=== PATIENT | male | born 1965 | race Asian ===

== ENCOUNTER 2024-06-30 09:54 | Emergency (ER) | payer OTHER ==
[~2024-06-30] VITALS: Ht 167.6 cm; Wt 75.6 kg
[2024-06-30] MEDS ORDERED: CEFTRIAXONE SODIUM 2 GM in SODIUM CHLORIDE 0.9% 100 ML IV ONE (10:45)
[2024-06-30 11:20] LABS: BASOPHILS 0.8 % (0-2); EOSINOPHILS 5.4 % (0-6); HEMATOCRIT 43.2 % (35.0-50.0); LYMPHOCYTES 20.8 % (24-44); MCH 20.9 (27-36); MCHC 32.4 g/dl (30-36); MCV 64.6 fl (81-99); MONOCYTES 11.9 % (0-12); NEUTROPHILS 61.1 % (39-80); PLATELET COUNT 359 K/uL (140-440); RBC 6.68 M/ul (4.3-5.7)
[2024-06-30 11:23] LABS: ANION GAP 14.3 (7-21); CALCIUM 8.8 mg/dL (8.5-10.1); CREATININE, SERUM 1.2 mg/dL (0.70-1.30); POTASSIUM 4.3 mmol/L (3.5-5.1)
[2024-06-30] MEDS ORDERED: AMOX TR-K CLV1 EAC1 PO (13:10)
[2024-06-30 13:24] VITALS: BP 127/87
== END 2024-06-30 13:21 | disposition home or self-care (01) ==
LOC: ED 09:54
PROVIDERS: Emergency Medicine
DX: L03.213 Periorbital cellulitis (principal)
CPT/HCPCS: 36415; 70481; 80048; 85025; 85060; 99284-25; J0696; Q9967

== ENCOUNTER 2024-07-06 15:41 | Inpatient (IN) | payer OTHER ==
[~2024-07-06] VITALS: Ht 167.6 cm; Wt 75.6 kg
[~2024-07-06 15:41] MED LIST: AMOX TR-K CLV1 EAC1 PO
--- OUTSIDE RECORDS SUMMARY | 2024-07-06 15:47 | XMS ---
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 Jac has no Care Guidelines for this patient. Sarmad VISIT COUNT (12 MO.) 2 [facility] [facility] TOTAL 2 NOTE: Visits indicate total known visits. [place] [place]12 [place] 07/06/2024 15:41 [facility] [place] TYPE: Emergency COMPLAINT: - FACIAL SWELLING 06/30/2024 09:55 [facility] [place] TYPE: Emergency COMPLAINT: - EYE PROBLEM DIAGNOSES: - Periorbital cellulitis INPATIENT VISIT TRACKING (12 MO.) No inpatient visits to display in this time frame [id number]
[2024-07-06 16:39] LABS: BASOPHILS 0.8 % (0-2); EOSINOPHILS 6.9 % (0-6); HEMATOCRIT 37.9 % (35.0-50.0); HEMOGLOBIN 12.3 g/dL (12.0-18.0); LYMPHOCYTES 20.6 % (24-44); MCHC 32.4 g/dl (30-36); MCV 64.7 fl (81-99); MONOCYTES 5.9 % (0-12); NEUTROPHILS 65.8 % (39-80); PLATELET COUNT 332 K/uL (140-440); RBC 5.86 M/ul (4.3-5.7); RDW 16.1 (10.5-15.0)
[2024-07-06 16:53] LABS: ALBUMIN/GLOBULIN RATIO 1.03 (1.1-2.4); ANION GAP 10.3 (7-21); BILIRUBIN, TOTAL 0.4 mg/dL (0.2-1.0); BUN/CREATININE RATIO 22.77 (6.0-28.6); CALCIUM 8.7 mg/dL (8.5-10.1); CREATININE, SERUM 1.01 mg/dL (0.70-1.30); POTASSIUM 4.3 mmol/L (3.5-5.1); PROTEIN, TOTAL 7.9 g/dL (6.4-8.2)
[2024-07-06] MEDS ORDERED: DAPTOmycin 500 MG/10 ML VIAL IV SCH ×2 (18:29→18:36)
[2024-07-06] MEDS ORDERED: AMP/SULBACTAM SOD 3 GM in SODIUM CHLORIDE 0.9% 100 ML IV ONE (18:30)
[2024-07-06 19:37] VITALS: BP 142/81
[2024-07-06 19:45] VITALS: BP 148/88
--- NOTE | 2024-07-06 19:45 | NUR ---
pt ARRIVED TO THE FLOOR VIA STRETCHER. pt ABLE TO WALK TO THE BED FROM THE STRETCHER. ASSESSMENT AND VITAL SIGNS DONE. pt DENIES ANY OTHER NEEDS AT THIS TIME. CALL LIGHT WITHIN REACH. IV ASSESSED, WNL. pt LEFT SIDE OF HIS FACE IS SWOLLEN AND RED WITH BLISTERS. pt STATES HE CAN SEE OUT OF HIS LEFT EYE BUT HIS VISION IS BLURRY.
[2024-07-06] MEDS ORDERED: PIPERACILLIN/TAZOBACTAM 3.375 GM in SODIUM CHLORIDE 0.9% 100 ML IV SCH (21:30)
[2024-07-06] MEDS ORDERED: OXYCODONE HCL 5 MG TAB PO PRN (21:30)
--- NOTE | 2024-07-06 21:40 | NUR ---
THIS RN CALLED THE MD TO ASK FOR ORDERS FOR THE PATIENT. NEW ORDERS GIVEN AND VERIFIED WITH REPEAT BACK METHOD. THIS RN IN TO HAND IV ABX. IV ABX INFUSING PER ORDER. pt DENIES ANY PAIN AT THIS TIME. CALL LIGHT WITHIN REACH. WATER REFRESHED.
[2024-07-07] VITALS (10 sets, daily range): BP systolic 115–138; BP diastolic 71–86
--- NOTE | 2024-07-07 00:24 | NUR ---
IN RM TO CHECK ON pt. pt UP TO THE BR. pt INDEPENDENT IN THE RM. pt DENIES ANY OTHER NEEDS AT THIS TIME. CALL LIGHT WITHIN REACH.
--- NOTE | 2024-07-07 01:52 | NUR ---
VITAL SIGNS AND ASSESSMENT DONE. pt DENIES AND PAIN AT THIS TIME. LEFT SIDE OF FACE IS STILL RED AND HAS BLISTERS. pt DENIES ANY OTHER NEEDS AT THIS TIME. CALL LIGHT WITHIN REACH.
--- NOTE | 2024-07-07 03:38 | NUR ---
pt RESTING IN THE BED WITH EYES CLOSED. RR EVEN AND UNLABORED. CALL LIGHT WITHIN REACH.
[2024-07-07 05:04] LABS: BASOPHILS 0.5 % (0-2); EOSINOPHILS 0.9 % (0-6); HEMATOCRIT 37.2 % (35.0-50.0); HEMOGLOBIN 12.2 g/dL (12.0-18.0); MCH 20.9 (27-36); MCHC 32.7 g/dl (30-36); MCV 63.9 fl (81-99); MONOCYTES 7.1 % (0-12); NEUTROPHILS 72.5 % (39-80); PLATELET COUNT 344 K/uL (140-440); RBC 5.82 M/ul (4.3-5.7); RDW 16.2 (10.5-15.0)
[2024-07-07 05:20] LABS: ALBUMIN 3.7 g/dL (3.4-5.0); ALBUMIN/GLOBULIN RATIO 1.03 (1.1-2.4); ANION GAP 10.6 (7-21); BILIRUBIN, TOTAL 0.5 mg/dL (0.2-1.0); BUN/CREATININE RATIO 17.34 (6.0-28.6); CALCIUM 8.2 mg/dL (8.5-10.1); CREATININE, SERUM 0.98 mg/dL (0.70-1.30); MAGNESIUM 2.4 mg/dL (1.8-2.4); POTASSIUM 3.6 mmol/L (3.5-5.1); PROTEIN, TOTAL 7.3 g/dL (6.4-8.2)
--- NOTE | 2024-07-07 06:16 | NUR ---
pt RESTING IN THE BED. WATER REFRESHED. IV ABX INFUSING PER ORDER. pt DENIES ANY OTHER NEEDS AT THIS TIME. CALL LIGHT WITHIN REACH.
--- NOTE | 2024-07-07 07:11 | NUR ---
REPORT RECEIVED FROM IRIS WALDEN. PATIENT IS RESTING IN BED AWAKE AND ALERT, TWO GUARDS PRESENT IN ROOM. PATIENT HAS NO REQUESTS, CALL LIGHT IN REACH.
[2024-07-07] MEDS ORDERED: ACETAMINOPHEN 325 MG TAB PO PRN (08:00)
[2024-07-07] MEDS ORDERED: ondansetron HCL 4 MG/2 ML VIAL IV PRN (08:00)
[2024-07-07] MEDS ORDERED: IBUPROFEN 400 MG TAB PO PRN (08:15)
[2024-07-07] MEDS ORDERED: diphenhydrAMINE HCL 25 MG CAP PO PRN (08:30)
[2024-07-07] MEDS ORDERED: ENOXAPARIN SODIUM 40 MG/0.4 ML SYR SUB-Q SCH (09:00)
--- NOTE | 2024-07-07 09:22 | NUR ---
MEDICATION ADMINISTERED, SEE MAR. ASSESSMENT COMPLETE. PATIENT RESTING IN BED IN FOUR POINT CUSTODY RESTRAINTS. PULSES AND CAP REFILL CHECKED IN ALL EXTREMETIES, WNL. PATIENT HAS REDDENED AND BLISTERED AREA TO LEFT ORBIT AND LEFT CHEEK WITH SEROUS DRAINAGE NOTED DOWN TO HIS JAW AND CHIN. PATIENT IS PROVIDED WITH A WARM, WET WASH CLOTH TO CLEANSE HIS FACE AND DOES SO INDEPENDENTLY. PATIENT COMPLAINS OF ITCHING AND PAIN TO THIS REDDENED AREA RATED 7/10, PRN PAIN MEDICATION ADMINISTERED, SEE MAR. PATIENT REPORTS HIS VISION IS BLURRY ONLY BECAUSE OF "ALL THE LIQUID BY MY EYE" BUT HIS VISION IS OTHERWISE FINE. PATIENT HAS NO OTHER COMPLAINTS, NO REQUESTS. JULIANE VO PROVIDES FRESH ICE WATER AND REMAINS IN ROOM TO TAKE VITALS.
[2024-07-07] MEDS ORDERED: PHARMACY RENAL DOSE ADJUSTMENT 1 DOSE MISC PO SCH (12:00)
--- NOTE | 2024-07-07 12:05 | NUR ---
PATIENT REPORTING L SIDED FACIAL PAIN RATED 5/10. PRN PAIN MEDICATION PROVIDED ALONG WITH WARM, WET WASHCLOTH FOR PATIENT TO LEAVE RESTING ON HIS FACE. PATIENT HAS NO OTHER REQUESTS, CALL LIGHT IN REACH. TWO GUARDS IN ROOM THROUGHOUT INTERACTION, FOUR POINT RESTRAINTS REMAIN IN PLACE.
--- NOTE | 2024-07-07 14:44 | NUR ---
PATIENT CONTINUES REPORTING LEFT FACIAL PAIN RATED 5/10. PATIENT AGREEABLE TO TRYING AN ICEPACK FOR PAIN. ICE PACK PROVIDED, PATIENT CURRENTLY HOLDING ICE PACK TO LEFT SIDE OF HIS FACE. ENTIRE AREA CLEANSED, INCLUDING AROUND THE EYE, PATTED DRIED. SEROUS DRAINAGE NOTED TO BE DECREASING FROM THIS AM. SMALL CRACKS NOTED TO THE SKIN. REDNESS UNCHANGED FROM THIS AM. PATIENT REPORTS NO CHANGES IN HIS VISION, "ACTUALLY A LITTLE BITTER" COMPARED TO THIS AM. PATIENT HAS NO REQUESTS, CALL LIGHT IN REACH. 2 GUARDS IN ROOM THROUGHOUT, FOUR POINT RESTRAINTS IN PLACE.
--- NOTE | 2024-07-07 17:19 | NUR ---
FRESH ICE WATER SUPPLIED. PATIENT HAS NO OTHER REQUESTS. PATIENT REMAINS IN FOUR POINT RESTRAINTS PER POLICY, GUARD PRESENT IN ROOM. CALL LIGHT IN REACH.
[2024-07-07] MEDS ORDERED: DAPTOmycin 500 MG/10 ML VIAL IV SCH (21:00)
[2024-07-07] MEDS ORDERED: CEFTRIAXONE SODIUM 1 GM in SODIUM CHLORIDE 0.9% 100 ML IV SCH (21:00)
--- NOTE | 2024-07-07 21:40 | NUR ---
Pt alert and oriented. redness and edema with yellow thin discharge over redness L cheek area. warm and tender to touch. Medicated with Motrin and Benadryl per c/o tenderness and itching. area cleansed gentlyw ith soapy warm water and warm compress to area prior to. toleratd well. eye closed due to edema. denies viaual changes when trying to open eyen. On room air. cooperative with vitals and assessment. lungs clear bilar. abd soft, CORNELIUS. tolerating liquids well. using 4point shackles as per [employer] protocol, 2 officers in room. Repositioned self. SL LAC patent. abx infusing w/o problems
[2024-07-08] VITALS (9 sets, daily range): BP systolic 117–140; BP diastolic 76–92
--- NOTE | 2024-07-08 00:29 | NUR ---
RESTING, EYES CLOSED, REDNESS AND EDEMA TO L CHEEK ABDULLAHI NO CHANGES. THIN SCANT AMOUNT OF YELLOW DRAINAGE PRESENT. 4 POINT RESTRAINT PER [facility] IN PLACE, 2 OFFICERS IN ROOM
--- NOTE | 2024-07-08 03:06 | NUR ---
Awake, c/o 4/10 L cheeck pain and itching, medicated with Benadryl 25mg po and Ibuprofen 400mg po. warm compress to L cheek, upper eyelid less edematous, less edema and redness to L cheek area. Pt stated he has been up to brp x2 .
[2024-07-08 05:08] LABS: BASOPHILS 0.9 % (0-2); EOSINOPHILS 8.1 % (0-6); HEMOGLOBIN 11.8 g/dL (12.0-18.0); LYMPHOCYTES 25.1 % (24-44); MCHC 32.8 g/dl (30-36); MCV 64.2 fl (81-99); MONOCYTES 7.8 % (0-12); NEUTROPHILS 58.1 % (39-80); PLATELET COUNT 331 K/uL (140-440); RBC 5.61 M/ul (4.3-5.7); RDW 16.1 (10.5-15.0)
[2024-07-08 05:20] LABS: ANION GAP 11.8 (7-21); BUN/CREATININE RATIO 21.35 (6.0-28.6); CREATININE, SERUM 1.03 mg/dL (0.70-1.30); MAGNESIUM 2.2 mg/dL (1.8-2.4); POTASSIUM 3.8 mmol/L (3.5-5.1)
--- NOTE | 2024-07-08 05:51 | NUR ---
Awake, watchint tv, no c/o facial pain or itching at this time. On room air. L eye decreased periorbital edema and L cheek edema and redness. continues to have scant amount of seros drainage. declined warm compress at this time. Denies visual problems. Tolerating liquids w/o problems, independent to BRP voiding QS. Wearing 4 point [facility] restraints as per [facility] protocol, 2 oficers in room.
--- NOTE | 2024-07-08 07:33 | NUR ---
HAWK REPORT RECIEVED FROM IRIS FLOREZ. PT LAYING IN BED WITH [address] 2 GAURDS IN ROOM. PT FACIAL CELLULITIS HAS NOT INCREASED IN REDNESS, OR SWELLING AT THIS TIME. PT HAS NO CURRENT CONCERNS AND HAS CALL LIGHT IN REACH AT THIS TIME.
--- NOTE | 2024-07-08 09:35 | NUR ---
PT LAYING IN BED WITH [address] PER [facility] RULES. PT HAS PAIN 2/10 AT THIS TIME AND HAS NO CURRENET CONCERNS AT THIS TIME PT CALL LIGHT IN REACH WITH TWO GAURDS PRESENT IN ROOM AT THIS TIME.
[2024-07-08] MEDS ORDERED: ARTIFICIAL TEARS 15 ML BTL OU PRN (10:30)
--- NOTE | 2024-07-08 10:36 | NUR ---
PT IN BED AT THIS TIME, PT REQUESTED ICE WATER. PT CELLULITIS HAS NO SPREAD AT THIS TIME, SKIN ON LEFT PORTION OF FACE HAS DECREASED IN REDNESS, BUT IS STILL DRY AND FLAKING AT THIS TIME. PT HAS NO CURRENT CONCERNS AT THIS TIME CALL LIGHT IN REACH.
--- NOTE | 2024-07-08 11:16 | NUR ---
MED REC COMPLETE
--- NOTE | 2024-07-08 11:48 | NUR ---
PT LAYING IN BED AT THIS TIME, PT HAS PAIN 2-10 STILL WITH NO CURRENT CONCERNS AT THIS TIME. PT HAS CALL LIGHT IN REACH AT THIS TIME.
--- NOTE | 2024-07-08 12:17 | NUR ---
PT SITTING UP IN BED WITH 2 GAURDS PRESENT IN ROOM. PT HAS 4 POIN RESTRAINTS ON AT THIS TIME AND HAS NO CURRENT CONCERNS TO REPORT. PT HAS CALL LIGHT IN REACH.
--- NOTE | 2024-07-08 12:28 | NUR ---
HOURLY ROUNDING. PATIENT HAS NO REQUEST AT THIS TIME, GUARDS ARE AT BEDSIDE
--- NOTE | 2024-07-08 13:50 | NUR ---
PT LAYING IN BED WITH 2 GUARDS PRESENT IN ROOM. PT HAS NO CURRENT NEEDS AT THIS TIME AND HAS CALL LIGHT IN REACH AT THIS TIME.
--- NOTE | 2024-07-08 16:15 | NUR ---
PT SITTING UP IN BED AT THIS TIME, PT HAS TWO [facility] GUARDS IN ROOM WITH 4 POINT RESTRAINTS PER [facility] PROCEDURE. PT HAS NO CONCERNS AT THIS TIME CALL LIGHT IN REACH.
--- NOTE | 2024-07-08 18:36 | NUR ---
PT SITTING UP IN BED AT THIS TIME, PT LEFT SIDE OF FACE IS DRY/FLAKY. PT HAS PAIN 1/10 AT THIS TIME AND HAS CALL LIGHT IN REACH.
--- NOTE | 2024-07-08 21:17 | NUR ---
Pt in bed, room air, wearing 4 point [facility] shackles. Cooperative with vitals. decreaed edema to R side, scant amount of serous drainage crustiness L eye and cheek area. tender, decreaed redness noted too, Deniesvisual changes, able to heve eye more open, decreaed periorbital edema aroudn eye noted. SL LAC patent. Medicated with Motrin per c/o 2/10 L cheek area pain. asked if he could havea shower. Set up for a shower done. 2 [employer] officers in room, will complete assessments and meds when out of shower
--- NOTE | 2024-07-08 21:28 | NUR ---
IT DESKTOP SUPPORT SPECIALIST SETUP THE SHOWER FOR PT, CHANGED BED LINENS, AND GOT PT SETTLED BACK IN BED.
--- NOTE | 2024-07-08 23:19 | NUR ---
AWAKE, WATCHNG TV, NO FURTHER C/O PAIN OR ITCHING. 2 [employer] OFFICERS IN ROOM
[2024-07-09] VITALS (7 sets, daily range): BP systolic 119–137; BP diastolic 79–92
--- NOTE | 2024-07-09 01:15 | NUR ---
EYES OPEN. NO VISUAL CHANGES STATED. DECREAED PERIORBITAL EDEMA NOTED. EYE QTTS DONE AT HIS REQUETS PER DRY-ITCHY EYES. TOLERATED WELL. CONTINUES TO HAVE SCANT AMOUNT OF CRUSTY YELLOW DRAINAGE FROM UPPER EYE DOWN TO BASE OF L CHEEK REDNESS. NO C/O PAIN OR ITCHYINESS OVER L CHEEK AREA. USING 4 POINT [employer] RESTRAINTS, 2 OFFICERS IN ROOM.
--- NOTE | 2024-07-09 03:38 | NUR ---
RESTING, EYES CLOSED, REDNESS-EDEMA L CHEEK NO CHANGES SINCE EARLIER ASSESSMENT. [facility] RESTRAINTS IN PLACE, 2 [facility] OFFICERS IN ROOM
[2024-07-09 05:19] LABS: BASOPHILS 0.8 % (0-2); EOSINOPHILS 9.4 % (0-6); HEMATOCRIT 38.2 % (35.0-50.0); HEMOGLOBIN 12.4 g/dL (12.0-18.0); LYMPHOCYTES 22.7 % (24-44); MCHC 32.5 g/dl (30-36); MCV 64.8 fl (81-99); MONOCYTES 8.1 % (0-12); PLATELET COUNT 336 K/uL (140-440)
[2024-07-09 05:29] LABS: ANION GAP 11.9 (7-21); CALCIUM 8.4 mg/dL (8.5-10.1); CREATININE, SERUM 0.9 mg/dL (0.70-1.30); MAGNESIUM 2.6 mg/dL (1.8-2.4); POTASSIUM 3.9 mmol/L (3.5-5.1)
--- NOTE | 2024-07-09 07:05 | NUR ---
Pt report received from IRIS Mendoza. Pt is resting supine in bed, watching television, A&O. Correctional officers in room. Pt's left side of face edematous, red and "crusty" with flaking skin. Pt denies pain in the area. IV patent, flushes well with good return. Call light in reach. White board updated.
--- NOTE | 2024-07-09 07:46 | NUR ---
UR CLINICAL REVIEW: [facility] [place] PRESEPTAL CELLULITIS WITH FAILURE OF OUTPAT ABX [facility] INPT 07/07/24 @ 0802 ORDER MATCHES [facility]IC[facility] FAXED TO DOC FOR REVIEW DISCHARGE TO HOME WHEN STABLE 07/11/24
--- NOTE | 2024-07-09 07:55 | NUR ---
HOURLY ROUNDING. BOARD HAS BEEN UPDATED AND CALL LIGHT HAS BEEN PLACED WITHIN REACH. GUARDS ARE AT BEDSIDE
--- NOTE | 2024-07-09 19:20 | NUR ---
REPORT RECEIVED FROM HAL SIMMONS. pt RESTING IN THE BED. BOARD UPDATED. pt DENIES ANY OTHER NEEDS AT THIS TIME. CALL LIGHT WITHIN REACH.
--- NOTE | 2024-07-09 20:45 | NUR ---
ASSESSMENT AND VITAL SIGNS DONE. IV ASSESSED, WNL. IV ABX INFUSING PER ORDER, SEE MAR. pt LEFT SIDE OF HIS FACE HAS REDNESS AND MINIMAL SWELLING. pt C/O ITCHING. PRN ANTI-ITCHING MED ADMINISTERED. pt DENIES ANY OTHER NEEDS AT THIS TIME. CALL LIGHT WITHIN REACH.
--- NOTE | 2024-07-09 22:20 | NUR ---
pt RESTING IN THE BED WITH EYES CLOSED. RR EVEN AND UNLABORED. CALL LIGHT WITHIN REACH.
[2024-07-10] VITALS (10 sets, daily range): BP systolic 112–128; BP diastolic 71–77
--- NOTE | 2024-07-10 01:12 | NUR ---
pt RESTING IN THE BED WITH EYES CLOSED. RR EVEN AND UNLABORED. CALL LIGHT WITHIN REACH.
--- NOTE | 2024-07-10 03:01 | NUR ---
pt RESTING IN THE BED WITH EYES CLOSED. RR EVEN AND UNLABORED. CALL LIGHT WITHIN REACH.
--- NOTE | 2024-07-10 05:36 | NUR ---
IN RM TO DO VITAL SIGNS AND ASSESSMENT. pt RESTING IN THE BED. LEFT SIDE OF FACE IS RED AND SWOLLED WITH SCABS ON HIS CHEEK. BLISTERS ARE GONE. WATER REFRESHED. pt DENIES ANY OTHER NEEDS AT THIS TIME. CALL LIGHT WITHIN REACH.
--- NOTE | 2024-07-10 07:22 | NUR ---
PT LAYING IN BED AT THIS TIME AWAKE AND ALERT TWO [employer] GAURDS PRESENT IN ROOM. PT HAS NO CURRENT CONCERNS AT THIS TIME. MD SPEARS ENDTERED ROOM I WAS LEAVING TO SEE PT. PT HAS CALL LIGHT IN REACH AT THIS TIME.
--- NOTE | 2024-07-10 07:55 | NUR ---
FROM [facility], PLAN FOR ANTIBIOTICS IV FOR 5-7 DAYS. HAS NO CM NEEDS. PLAN TO RETURN TO [facility] WHEN MEDICALLY CLEARED.
--- NOTE | 2024-07-10 08:40 | NUR ---
PT LAYING IN BED AT THIS TIME, PT ONLY CONCERN WAS HIS EYES WERE DRY, PT GIVEN PRN EYE DROPS WHICH HELPED. PT HAS NO OTHER CONCERNS AT THIS TIME. PT HAS CALL LIGHT IN REACH AND PT IS CURRENTLY IN BED WITH TWO GAURDS CURRENTLY IN ROOM AT THIS TIME.
--- NOTE | 2024-07-10 10:14 | NUR ---
PT CURRENTLY IN ROOM AT THIS TIME. PT HAS NO CURRENT CONCERNS AT THIS TIME AND HAS CALL LIGHT IN REACH AT THIS TIME.
--- NOTE | 2024-07-10 11:14 | NUR ---
PT SITTING UP IN BED AT THIS TIME. PT HAS NO CURRENT CONCERNS AT THIS TIME. PT HAS CALL LIGHT IN REACH AT THIS TIME AND HAS NO CURRENT NEEDS.
--- NOTE | 2024-07-10 11:54 | NUR ---
THIS MORNING BROUGHT PATIENT'S HIS BREAKFAST. ALSO GOT HIM FRESH ICE WATER. GOT PATIENT A WASH CLOTH TO WASH HIS FACE.
--- NOTE | 2024-07-10 12:27 | NUR ---
PT NOT AVAILABLE FOR VISIT. PROVIDED PRAYER.
--- NOTE | 2024-07-10 13:28 | NUR ---
PT SITTING UP IN BED AT THIS TIME WITH TWO [employer] GUARDS IN ROOM AND FOUR POINT RESTRAINTS IN PLACE PER [facility] POLICY. PT COMPLAINED OF HIS FACE ITCHING, NO INCREASED SWELLING NOTED, OR REDNESS UPON EXAMINATION. PT WAS GIVEN PRN BENIDRYL (SEE EMAR). PT HAS NO FURTHER CONCERNS AT THIS TIME CALL LIGHT IN REACH.
--- NOTE | 2024-07-10 14:48 | NUR ---
PT SITTING UP IN BED AT THIS TIME PT HAS TWO [facility] GUARDS IN ROOM AT THIS TIME. PT HAS NO CONCERNS, PT STATES " THE ITCHING ON HIS FACE HAS GONE DOWN AFTER THE BENIDRYL". PT HAS NO CONCERNS AT THIS TIME AND HAS HIS CALL LIGHT IN REACH.
--- NOTE | 2024-07-10 16:12 | NUR ---
PT LAYING IN BED, TWO [employer] GUARDS ARE PRESENT IN ROOM WITH PT IN FOUR POINT RESTRAINTS PER [facility] POLICY. PT HAS NO CURRENT CONCERNS AND HAS CALL LIGHT WITHIN REACH AT THIS TIME.
--- NOTE | 2024-07-10 17:09 | NUR ---
PT SITTING UP IN BED EATING DINNER AT THIS TIME. PT HAS NO CURRENT CONCERNS AT THIS TIME AND HAS CALL LIGHT IN REACH.
--- NOTE | 2024-07-10 18:18 | NUR ---
PT SITTING UP IN BED AT THIS TIME, PT DOES NOT HAVE ANY NEEDS AT THIS TIME AND HAS CALL LIGHT IN REACH.
--- NOTE | 2024-07-10 19:22 | NUR ---
REPORT RECEIVED FROM LINA SIMMONS. pt RESTING IN THE BED. BOARD UPDATED. pt DENIES ANY OTHER NEEDS AT THIS TIME. CALL LIGHT WITHIN REACH.
--- NOTE | 2024-07-10 20:30 | NUR ---
ASSESSMENT AND VITAL SIGNS DONE. PRN ANTI-ITCHING MEDS ADMINISTERD. PRN EYE DROPS ADMINISTERED. pt DENIES ANY PAIN AT THIS TIME. pt FACE IS RED, SWELLING HAS GONE DOWN. IV ABX INFUSING PER ORDER, SEE MAR. pt DENIES ANY OTHER NEEDS AT THIS TIME. CALL LIGHT WITHIN REACH. WATER REFRESHED.
--- NOTE | 2024-07-10 23:20 | NUR ---
pt RESTING IN THE BED WITH EYES CLOSED. RR EVEN AND UNLABORED. CALL LIGHT WITHIN REACH.
--- NOTE | 2024-07-11 01:55 | NUR ---
pt RESTING IN THE BED WITH EYES CLOSED. RR EVEN AND UNLABORED. CALL LIGHT WITHIN REACH.
--- NOTE | 2024-07-11 03:47 | NUR ---
pt RESTING IN THE BED WITH EYES CLOSED. RR EVEN AND UNLABORED. CALL LIGHT WITHIN REACH.
[2024-07-11 05:28] VITALS: BP 108/75
[2024-07-11 05:29] VITALS: BP 108/75
--- NOTE | 2024-07-11 05:31 | NUR ---
IN RM TO DO pt VITAL SIGNS AND ASSESSMENT. WATER REFRESHED. pt FACE IS RED, DRY AND FLAKEY. pt DENIES ANY OTHER NEEDS AT THIS TIME. CALL LIGHT WITHIN REACH.
--- NOTE | 2024-07-11 07:18 | NUR ---
VERBAL REPORT RECEIVED FROM IRIS WALDEN. PT RESTS IN BED, AWAKE AND ALERT, WATCHES TV, CALL LIGHT IN REACH, NO REQUESTS AT THIS TIME.
[2024-07-11] MEDS ORDERED: ARTIFICIAL TEAR15 M3 OU (09:20)
[2024-07-11] MEDS ORDERED: LINEZOLID600 MG PO (09:21)
[2024-07-11 09:56] VITALS: BP 120/73
--- NOTE | 2024-07-11 11:03 | NUR ---
Faxed orders and called [facility]. They did not receive orders. I will call them back in 20 min or so.
--- NOTE | 2024-07-11 11:43 | NUR ---
AFTER DOING MORING VITALS. ASKED PATIENT IF HE WOULD LIKE TO BRUSH HIS TEETH AND HE SAID SURE. AND HE SAID HE ALREADY WASHED HIS FACE.
--- NOTE | 2024-07-11 12:33 | NUR ---
DISCUSSED CELLULITIS EDUCATION WITH PT. IV REMOVED, TIP INTACT, GAUZE AND COBAN DRESSING APPLIED TO SITE, PT TOLERATED WELL. VSS, WITH ELEVATED HR, PT REPORTS THIS IS NORMAL FOR HIM WHEN HE IS GETTING HEATLH CARE HE IS, "NERVOUS." DENIES CHEST PAIN. DISCHARGE PACKET AND EYE DROPS SENT WITH [facility]. PT LEAVES UNIT VIA WHEELCHARE IN NO APPARENT DISTRESS.
--- NOTE | 2024-07-11 12:34 | NUR ---
TELEPHONE REPORT PROVIDED TO IRIS NG AT [facility].
== END 2024-07-11 12:33 | disposition home or self-care (01) | DRG 603 ==
LOC: ED 15:41 → MS 15:42
PROVIDERS: Emergency Medicine; ADMIT Student in an Organized Health Care Education/Training Program; ATTEND Student in an Organized Health Care Education/Training Program
DX: L03.213 Periorbital cellulitis (principal); Z79.2 Long term (current) use of antibiotics; Z87.891 Personal history of nicotine dependence
CPT/HCPCS: 36415; 70481; 80048; 80053; 83735; 85025; 85060; A9270; J0295; J0696; J0878; J1650; J2543; Q9967